=== PATIENT | female | born 1990 | race Caucasian/White ===

== ENCOUNTER 2021-04-23 15:53 | Outpatient (CLI) | payer BC, SELFPAY ==
[2021-04-23 16:52] LABS: SARS-CoV-2 Ag Positive (Negative)
== END 2021-04-23 15:54 | disposition home or self-care (01) ==
LOC: CHSLAB 15:57
PROVIDERS: PCP Family Medicine; Visit Provider Family Medicine
DX: U07.1 COVID-19 (principal); J02.9 Acute pharyngitis, unspecified
CPT/HCPCS: 87426; C9803

== ENCOUNTER 2024-08-02 16:52 | Emergency (ER) | payer BC, SELFPAY ==
--- NOTE | ~2024-08-02 | XR_ITS ---
XR chest 2V Ordering provider: Emperatriz Lyn APRN History: 33 years Female with . persistent cough for 5 months . Comparison: None. FINDINGS: MEDIASTINUM: The cardiac silhouette is not enlarged. LUNGS: No infiltrates, effusions or pneumothorax. OTHER: No free air under the diaphragm. IMPRESSION: No acute cardiopulmonary pathology. Reviewed, dictated and finalized at location A.
--- NOTE | 2024-08-02 16:58 | ED_ITS ---
HPI - URI/Sore Throat General Chief Complaint: Upper Respiratory Infection Stated Complaint: Upper Respiratory Symptoms Time Seen by Provider: 08/02/24 16:58 Source: patient Mode of arrival: ambulatory Limitations: no limitations History of Present Illness HPI Narrative: Patient presents to the clinic complaining of a persistent cough that has been there for 5 months. She states that was treated with an antibiotic and steroid at the end of 2023 for it. She denies being short of breath, but reports chest burning throughout the day. No history of asthma. Related Data Home Medications ?Medication ?Instructions ?Recorded ?Confirmed ?Last Taken ?Type norgestimate 0.25 mg-ethinyl 1 tablet PO DAILY 02/06/20 Unknown History estradiol 0.035 mg tablet (Sprintec (28)) sertraline 25 mg tablet 25 mg PO DAILY 02/06/20 Unknown History zolpidem 10 mg tablet 10 mg PO ONCE 02/06/20 Unknown History cetirizine 10 mg tablet (Allergy 10 mg PO DAILY PRN allergy symptoms 08/02/24 08/02/24 Unknown History Relief (cetirizine)) Allergies Allergy/AdvReac Type Severity Reaction Status Date / Time No Known Allergies Allergy Verified 04/07/20 11:38 Review of Systems Review of Systems: CONSTITUTIONAL: Denies body aches, fever, chills, or sweats. Reports EYES: Denies visual changes, redness, or discharge. ENT: Denies rhinorrhea, congestion, sore throat, or otalgia. CARDIOVASCULAR: Denies chest pain, palpitations, or edema. RESPIRATORY: Reports cough. GASTROINTESTINAL: Denies abdominal pain, nausea, vomiting, or diarrhea. GENITOURINARY: Denies dysuria or hematuria. SKIN: Denies rash, itching, or wounds. MUSCULOSKELETAL: Denies back pain, joint pain, or myalgia. NEUROLOGIC: Denies headache, numbness, tingling, or weakness. PSYCH: Denies depression or anxiety. All systems reviewed & are unremarkable except as noted in HPI and below PMFSH Social History Social History Smoking status: Never smoker Alcohol intake: current Comments At time of signature, I have reviewed and agree with nursing past medical, surgical, social and family history unless otherwise noted. Please see nursing chart for further information. There is no relevant family history pertinent to the presenting complaint. Exam Narrative: GENERAL: Well-appearing, well-nourished, and in no acute distress. EYES: EOMI. No redness or drainage. Conjunctivae normal. ENT: Mucous membranes pink and moist. Nares clear. No rhinorrhea. TMs normal bilaterally. No Throat Erythematous or tonsillar exudate. Uvula midline. Hoarseness noted. NECK: Normal AROM. Supple. No lymphadenopathy. CHEST: No respiratory distress. Clear to auscultation. HEART: Regular rate and rhythm. No murmur appreciated. Normal peripheral pulses. ABDOMEN: Soft, nontender, nondistended, normal active bowel sounds. SKIN: Warm, dry, no rash. Capillary refill normal. Normal skin turgor. NEURO: No focal deficits. Alert and oriented x3. Gait steady. PSYCH: Normal affect. No signs of depression or anxiety. Course Course Level of Care: Express Care Visit MDM - URI/Sore Throat MDM Narrative Medical decision making narrative: Discussed physical exam findings and chest xray. Negative chest XR. Steroids and benzonatate given for persistent cough. Advised supportive measures and signs/symptoms to go to the ER. Pt is appropriate for outpt treatment and follow up. Differential Diagnosis Differential diagnosis: Likely upper respiratory infection, viral infection, bronchitis and other (pneumonia) Imaging Data Radiologist's impression: ITS Impressions Chest X-Ray 08/02/24 17:16 IMPRESSION: No acute cardiopulmonary pathology. Critical Care Time Critical Care Time Critical Care Time: No Discharge Plan Discharge Clinical Impression: Bronchitis Patient Disposition: Home Condition: Stable Instructions: Acute Bronchitis (ED) Additional Instructions: Recommend Flonase spray and Zyrtec (or Claritin/Huong) Take them benzonatate and steroid as prescribed. Symptomatic treatment includes: rest, fluids, and increase humidity of the air at home. Follow up with your primary care provider in 1 week. Go to the ER for worsening symptoms or concerns. Patient Language: Bengali Prescriptions: New benzonatate 200 mg capsule 200 mg PO TID PRN (Reason: cough) Qty: 20 0RF prednisone 50 mg tablet 50 mg PO DAILY 5 Days Qty: 5 0RF No Action cetirizine [Allergy Relief (cetirizine)] 10 mg tablet 10 mg PO DAILY PRN (Reason: allergy symptoms) zolpidem 10 mg tablet 10 mg PO ONCE sertraline 25 mg tablet 25 mg PO DAILY norgestimate-ethinyl estradiol [Sprintec (28)] 0.25-35 mg-mcg tablet 1 tablet PO DAILY amoxicillin-pot clavulanate [Augmentin] 875-125 mg tablet 1 tablet PO BID Qty: 20 0RF fluticasone propionate 50 mcg/actuation spray,suspension 1 spray intranasal BID Qty: 15.8 0RF Rx Instructions: administer into each nostril amoxicillin-pot clavulanate [Augmentin] 875-125 mg tablet 1 tablet PO BID Qty: 20 0RF Follow-up/Referrals: Bill,MD Eric [Primary Care Provider] - Time of Disposition: 17:32
[2024-08-02 17:05] VITALS: BP 127/75; PULSE 82; RESP 18; TEMP 36.6; O2SAT 99
== END 2024-08-02 17:43 | disposition home or self-care (01) ==
PROVIDERS: PCP Family Medicine
DX: J40 Bronchitis, not specified as acute or chronic (principal)
CPT/HCPCS: 71046; 99213; G0463